=== PATIENT | female | born 1965 | race Caucasian/White ===

== ENCOUNTER 2021-09-21 09:26 | Emergency (ER) | payer SELFPAY | END 2021-09-21 10:11 | disposition home or self-care (01) | LOC: MADERS 09:26 | DX: H66.41 Suppurative otitis media, unspecified, right ear (principal); H72.91 Unspecified perforation of tympanic membrane, right ear; I10 Essential (primary) hypertension; F17.210 Nicotine dependence, cigarettes, uncomplicated | CPT/HCPCS: 99406 ==